=== PATIENT | male | born 1990 | race African-American/Black ===

== ENCOUNTER 2020-07-20 08:50 | Emergency (ER) | payer BC ==
[~2020-07-20] VITALS: Ht 170.2 cm; Wt 87.0 kg
[2020-07-20 10:10] VITALS: BP 134/83
== END 2020-07-20 10:10 | disposition home or self-care (01) ==
LOC: ER 09:07
DX: K11.1 Hypertrophy of salivary gland (principal)
CPT/HCPCS: 99283